=== PATIENT | male | born 1975 | race African-American/Black ===

== ENCOUNTER 2019-11-18 12:59 | Inpatient (IN) | payer MEDICARE ==
[2019-11-18] MEDS: hydrALAZINE HCL 50 MG TAB PO SCH (22:29)
[2019-11-18] MEDS: METOPROLOL TARTRATE 50 MG TAB PO SCH (22:30)
[2019-11-19 04:36] LABS: Hepatitis B Surface Antibody Reactive (Non-Reactive); Hepatitis B Surface Antigen Non-Reactive (Non-Reactive)
--- NOTE | 2019-11-19 08:30 | P.HPIM ---
History of Present Illness H&P Date: 11/19/19 This is a 44-year-old male patient of Dr. Barajas with past medical history of hypertension, hypertensive cardiovascular disease, end-stage renal disease on hemodialysis Monday through a right forearm fistula. 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 He initially presented to [facility] after having shortness of breath for 3-4 days and had hemodialysis in [place] on Monday. On presentation, patient had of fever of 103. Covert 19 nasal swab was done which came back positive and patient was placed in droplet precautions and started on Rocephin, Zithromax. Chest x-ray showed cardiomegaly with interstitial pattern suggestive of atypical pneumonia. Patient was seen by multiple consultants including nephrology and underwent hemodialysis treatment yesterday. Cardiology saw the patient for elevated troponin which ruled out acute coronary syndrome. He was also seen by infectious disease, Dr. Alvarado. Patient was subsequently transferred to [facility] as a direct admit due to complications related to completing dialysis treatments to [facility]. Patient did undergo hemodialysis treatment last evening. Nephrology and infectious disease on consult. Patient is requesting to be discharged and we will prepare a shunt for discharge pending clearance by Dr. Alvarado. Review of Systems Constitutional: Reports fatigue, Denies chills, Denies fever, Denies weakness Eyes: denies blurred vision, denies pain Ears, nose, mouth and throat: Denies dysphagia, Denies headache, Denies nasal congestion, Denies nasal discharge, Denies sore throat Cardiovascular: Reports dyspnea on exertion, Denies chest pain, Denies edema, Denies lightheadedness, Denies palpitations, Denies shortness of breath Respiratory: Reports cough, Reports dyspnea, Denies cough with sputum, Denies excessive sputum, Denies hemoptysis Gastrointestinal: Denies abdominal pain, Denies diarrhea, Denies nausea, Denies vomiting Genitourinary: Denies dysuria, Denies hematuria Musculoskeletal: Denies frequent falls, Denies gait dysfunction, Denies myalgias Integumentary: Denies pruritus, Denies rash Neurological: Denies numbness, Denies weakness Endocrine: Denies fatigue, Denies weight change Past Medical History Past Medical History: Hypertension, Renal Disease Additional Past Medical History / Comment(s): End Stage Renal Disease. History of Any Multi-Drug Resistant Organisms: None Reported Additional Past Surgical History / Comment(s): Fistula placement to right forearm. Past Anesthesia/Blood Transfusion Reactions: No Reported Reaction Past Psychological History: No Psychological Hx Reported Smoking Status: Never smoker Additional Past Alcohol Use History / Comment(s): Patient has never used smokeless tobacco. He reports previous alcohol use. He reports he does not use drugs. 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 - Past Family History Mother Additional Family Medical History / Comment(s): Mother at age 72 from a rare cancer and he does not recall the name. Father Additional Family Medical History / Comment(s): Father is alive at age 74 without any major medical problems. He has 3 sisters and one was initially on dialysis and recovered. Patient does not have any brothers. He has one son. Medications and Allergies Home Medications Medication Instructions Recorded Confirmed Type Calcium Acetate [PhosLo] 1,334 mg PO BID-W/MEALS 11/18/19 11/18/19 History Calcium Acetate [PhosLo] 2,001 mg PO TID-W/MEALS 11/18/19 11/18/19 History Fluticasone Nasal [place] [Flonase 1 spray EA NOSTRIL DAILY 11/18/19 11/18/19 History Nasal [place]] Sildenafil Citrate [Viagra] 100 mg PO DIRECTED PRN 11/18/19 11/18/19 History Azithromycin [Zithromax] 500 mg PO DAILY #3 tab 11/19/19 Rx Metoprolol Tartrate [Lopressor] 100 mg PO BID #60 tab 11/19/19 Rx amLODIPine [Norvasc] 10 mg PO DAILY #30 tab 11/19/19 Rx dexAMETHasone [Hexadrol] 6 mg PO DAILY #5 tab 11/19/19 Rx hydrALAZINE HCL [Apresoline] 100 mg PO TID #90 tab 11/19/19 Rx Allergies Allergy/AdvReac Type Severity Reaction Status Date / Time lisinopril AdvReac "sweats a Verified 11/18/19 20:51 lot" Physical Exam Vitals: Vital Signs Temp Pulse Resp BP Pulse Ox 11/19/19 05:04 98.2 F 77 16 167/96 99 11/19/19 00:33 98.2 F 78 16 160/92 100 11/18/19 21:51 98.8 F 82 16 158/91 11/18/19 20:00 98.0 F 86 18 158/91 100 11/18/19 18:49 98.8 F 75 20 161/104 100 Intake and Output 11/18/19 11/19/19 11/19/19 22:59 06:59 14:59 Intake Total 240 Output Total 0 Balance 0 240 Intake: Oral 240 Output: Hemodialysis 0 Other: # Voids 0 1 Weight 111.4 kg 93.5 kg Physical Examination Gen: This is a 44-year-old -[place] male. He is resting in bed appears to be comfortable. No respiratory distress is noted. ENT: Head is atraumatic, normocephalic. Pupils equal, round. Sclerae is anicteric. NECK: Supple. No JVD. No lymphadenopathy. No thyromegaly. LUNGS: Decreased breath sounds in the bases with few rhonchi. No expiratory wheezes. No intercostal retractions. HEART: First heart sound is present, second heart sound is normal. There is systolic ejection murmur 2/6 located at the left sternal border. ABDOMEN: Soft. Bowel sounds are present. No masses. No tenderness. EXTREMITIES: No pedal edema. No calf tenderness. NEUROLOGICAL: Patient is awake, alert and oriented x3. Cranial nerves 2 through 12 are grossly intact. Results Labs: Abnormal Lab Results - Last 24 Hours (Table) 11/18/19 Range/Units 19:00 Hep Bs Antibody Reactive H (Non-Reactive) Thrombosis Risk Factor Assmnt - DVT/VTE Prophylaxis DVT/VTE Prophylaxis: Pharmacologic Prophylaxis ordered - Choose All That Apply Any of the Below Risk Factors Present?: No Other Risk Factors: No Other congenital or acquired thrombophilia - If yes, enter type in comment: No Thrombosis Risk Factor Assessment Level: Very Low Risk Assessment and Plan Plan: 1.COVID-19 pneumonitis. Continue azithromycin. 2. Accelerated hypertension. Continue metoprolol 100 mg twice daily, hydralazine 100 mg 3 times daily, amlodipine 10 mg daily. 3. Elevated troponin secondary to end-stage renal disease. Acute coronary syndrome ruled out. 4. Pancytopenia of unclear etiology possibly related to Covid 19. 5. Anemia secondary to renal disease. Patient will be admitted to the hospital for a minimum of 2 night stay. Discharge plan: home Impression and plan of care have been directed as dictated by the signing physician. Sonia Golden nurse practitioner acting as scribe for signing physician.
[2019-11-19] MEDS ORDERED: FLUTICASONE 50MCG/SPRAY NASAL 16GM EA NOSTRIL SCH (09:00)
[2019-11-19] MEDS ORDERED: dexAMETHasone 4 MG TAB PO SCH (09:00)
[2019-11-19] MEDS ORDERED: ENOXAPARIN 30 MG/0.3 ML SYRINGE SQ SCH (09:00)
[2019-11-19] MEDS ORDERED: amLODIPine 10 MG TAB PO SCH (09:00)
[2019-11-19] MEDS ORDERED: FAMOTIDINE 20 MG TAB PO SCH (09:00)
[2019-11-19] MEDS ORDERED: AZITHROMYCIN 500 MG TAB PO SCH (09:00)
[2019-11-19] MEDS: CALCIUM ACETATE 667 MG TAB PO SCH ×2 (09:17→12:43)
[2019-11-19] MEDS: hydrALAZINE HCL 50 MG TAB PO SCH (09:17)
[2019-11-19] MEDS: METOPROLOL TARTRATE 50 MG TAB PO SCH (09:18)
[2019-11-19 10:56] VITALS: BP 152/81; PULSE 79; RESP 20; TEMP 99
--- NOTE | 2019-11-19 12:21 | P.PN ---
Subjective Patient seen in follow-up for end-stage renal disease. He is maintained on hemodialysis on Monday schedule. Admits to productive cough. No chest pain or shortness of breath. Tolerated dialysis well yesterday. Vital signs are stable. General: The patient appeared well nourished and normally developed. HEENT: Head exam is unremarkable. Neck is without jugular venous distension. LUNGS: Breath sounds decreased. HEART: Rate and Rhythm are regular. ABDOMEN: Soft, nontender. EXTREMITITES: No clubbing, cyanosis, or edema. Objective - Vital Signs Vital signs: Vital Signs Temp 99.0 F 11/19/19 08:00 Pulse 79 11/19/19 08:00 Resp 20 11/19/19 08:00 BP 152/81 11/19/19 08:00 Pulse Ox 98 11/19/19 08:00 Intake & Output 11/18/19 11/19/19 11/19/19 18:59 06:59 18:59 Intake Total 240 Output Total 0 Balance 240 Weight 111.4 kg 93.5 kg Intake: Oral 240 Output: Hemodialysis 0 Other: # Voids 0 1 3 - Labs Labs: Abnormal Lab Results - Last 24 Hours (Table) 11/18/19 Range/Units 19:00 Hep Bs Antibody Reactive H (Non-Reactive) Assessment and Plan Plan: Assessment: 1. End-stage renal disease maintained on hemodialysis on Monday schedule. 2. COVID-19 pneumonitis maintained on azithromycin. Also on dexamethasone. 3. Hypertension with chronic kidney disease. Stable. 4. Chronic kidney disease mineral bone disease maintained on PhosLo. Plan: Hemodialysis tomorrow.
[2019-11-19] MEDS ORDERED: ACETAMINOPHEN TAB 325 MG TAB PO PRN (12:42)
[2019-11-19] MEDS ORDERED: CALCIUM ACETATE 667 MG TAB PO PRN (17:30)
== END 2019-11-19 17:21 | disposition left against medical advice (07) | DRG 314 ==
LOC: 3SCARD 18:07
PROVIDERS: ADMIT Internal Medicine; ATTEND Internal Medicine
PROC: 5A1D70Z Performance of Urinary Filtration, Intermittent, Less than 6 Hours Per Day (ICD-10-PCS; principal; 2019-11-18)
DX: T80.90XA Unspecified complication following infusion and therapeutic injection, initial encounter (principal); U07.1 COVID-19; J12.89 Other viral pneumonia; N18.6 End stage renal disease; I13.11 Hypertensive heart and chronic kidney disease without heart failure, with stage 5 chronic kidney disease, or end stage renal disease; D61.818 Other pancytopenia; E83.9 Disorder of mineral metabolism, unspecified; D63.1 Anemia in chronic kidney disease; Z79.899 Other long term (current) drug therapy; Z99.2 Dependence on renal dialysis; Z88.8 Allergy status to other drugs, medicaments and biological substances; Z80.9 Family history of malignant neoplasm, unspecified
CPT/HCPCS: 86706; 87340; 90935